=== PATIENT | male | born 1950 | race Caucasian/White ===

== ENCOUNTER → 2019-11-28 | Outpatient (CLI) | payer MEDICARE ==
--- NOTE | 2019-11-28 14:52 | RAD ---
Abdominal ultrasound without comparison for abdominal pain. Technique and findings: Real-time grayscale and color Doppler evaluation of the abdominal organs is performed. Midline structures including the majority of the aorta, pancreas, and the IVC are not well seen. Visualized portions of the aorta are nonaneurysmal. There is diffuse fatty infiltration of liver. No definite focal parenchymal abnormality. No intra or extrahepatic biliary ductal dilatation. The liver measures 14.5 cm in length. Portal vein is patent and hepatopedal. Gallbladder is partially fluid distended, and there is sludge as well as several shadowing stones within the gallbladder. There is no pericholecystic fluid, and there is borderline wall thickening, however there may be some internal septations which suggests complex internal fluid and/or debris. The right kidney measures 11.3 x 4.7 x 4.5 cm and the left measures 12.3 x 4.9 x 5.2 cm. No hydronephrosis or parenchymal abnormality of either kidney. Prostate is mildly enlarged. Urinary bladder is only partially fluid distended but is otherwise unremarkable. No free or loculated fluid collections. Spleen is enlarged measuring 15.4 cm. No focal parenchymal abnormalities. IMPRESSION: 1. Hepatic steatosis and splenomegaly. 2. Cholelithiasis. There is borderline thickened gallbladder wall, and there is suggestion of internal septations which could reflect complex fluid such as blood or pus within the gallbladder lumen is well, raising concern for acute cholecystitis. If there is clinical uncertainty, further evaluation with HIDA scan may be of benefit. 3. Enlarged prostate. Electronically signed by: Tavares Ly MD (11/28/2019 2:49 PM) [id number]
== END | disposition home or self-care (01) ==
LOC: US 08:49
PROVIDERS: ATTEND Nurse Practitioner
DX: N40.0 Benign prostatic hyperplasia without lower urinary tract symptoms (principal); R16.1 Splenomegaly, not elsewhere classified; K80.20 Calculus of gallbladder without cholecystitis without obstruction; R11.10 Vomiting, unspecified; K76.0 Fatty (change of) liver, not elsewhere classified
CPT/HCPCS: 76700